=== PATIENT | female | born 1955 | race Caucasian/White ===

== ENCOUNTER → 2017-06-10 | Outpatient (CLI) | payer BC ==
--- NOTE | 2017-06-13 10:45 | Diagnostic Imaging Report ---
INDICATION: Screening mammogram. COMPARISON: 05/14/2016. TECHNIQUE: Digital screening mammography was obtained with CAD and 3-dimensional tomosynthesis. FINDINGS: The breast tissue is heterogeneously dense but stable. No masses or suspicious calcifications are seen. IMPRESSION: Stable screening mammogram. No malignancy. ACR BI-RADS Category 1: Negative. Result letter will be mailed to the patient. Note: At least 10% of breast cancer is not imaged by mammography. Dictated by: Dictated on workstation # [id number]
== END ==
LOC: RAD 13:33
PROVIDERS: ATTEND Obstetrics & Gynecology
DX: Z12.31 Encounter for screening mammogram for malignant neoplasm of breast (principal)
CPT/HCPCS: 77067

== ENCOUNTER → 2018-06-30 | Outpatient (CLI) | payer BC ==
--- NOTE | 2018-06-30 14:06 | Diagnostic Imaging Report ---
INDICATION: Routine screening. COMPARISON: Comparison is made with prior mammogram from 06/10/2017 and 05/14/2016. TECHNIQUE: 2D and 3D bilateral screening mammography was performed with computer-aided detection (CAD) system. FINDINGS: Both breasts remain heterogeneously dense, limiting the sensitivity of mammography. There are some microcalcifications noted in the left breast posterior depth just medial to the nipple line on the CC view. These are not well seen on the MLO view. Additional views are recommended of these calcifications. The right breast is stable. No mass is identified. The axillae are unremarkable. IMPRESSION: Left breast calcifications. Additional views are recommended. ACR BI-RADS Category 0: Incomplete. (Needs additional imaging evaluation). Result letter will be mailed to the patient. Note: At least 10% of breast cancer is not imaged by mammography. Dictated by: Dictated on workstation # [id number]
== END ==
LOC: RAD 08:25
PROVIDERS: ATTEND Obstetrics & Gynecology
DX: Z12.31 Encounter for screening mammogram for malignant neoplasm of breast (principal); R92.1 Mammographic calcification found on diagnostic imaging of breast
CPT/HCPCS: 77067

== ENCOUNTER → 2018-07-17 | Outpatient (CLI) | payer BC ==
--- NOTE | 2018-07-17 16:05 | Diagnostic Imaging Report ---
INDICATION: Followup screening mammogram for calcifications Comparison made to prior examination 06/10/17 and 06/30/2018. Spot compression views and true lateral view of the left breast were obtained. FINDINGS: Magnification compression view of the left breast demonstrates no suspicious mass or microcalcifications. There are a few faint punctate benign type calcifications. IMPRESSION: Category 2 benign ACR BI-RADS Category 2: Benign findings. Result letter will be mailed to the patient. Note: At least 10% of breast cancer is not imaged by mammography. Dictated by: Dictated on workstation # [id number]
== END ==
LOC: RAD 13:48
PROVIDERS: ATTEND Obstetrics & Gynecology
DX: R92.1 Mammographic calcification found on diagnostic imaging of breast (principal)

== ENCOUNTER → 2019-08-06 | Outpatient (CLI) | payer MEDICARE ==
--- NOTE | 2019-08-06 16:38 | Diagnostic Imaging Report ---
INDICATION: Routine screening. COMPARISON: 06/30/2018 and 06/10/2017. TECHNIQUE: 2D and 3D bilateral screening mammography was performed with CAD. FINDINGS: Both breasts remain heterogeneously dense, limiting the sensitivity of mammography. The parenchymal pattern is stable. No mass or malignant appearing microcalcifications are seen. The axillae are unremarkable. IMPRESSION: No mammographic features suspicious for malignancy are identified. ACR BI-RADS Category 1: Negative. Result letter will be mailed to the patient. Note: At least 10% of breast cancer is not imaged by mammography. Dictated by: Dictated on workstation # [id number]
== END ==
LOC: RAD 14:48
PROVIDERS: ATTEND Obstetrics & Gynecology
DX: Z12.31 Encounter for screening mammogram for malignant neoplasm of breast (principal)
CPT/HCPCS: 77067

== ENCOUNTER → 2019-08-07 | Outpatient (CLI) | payer MEDICARE ==
--- NOTE | 2019-08-07 11:35 | Diagnostic Imaging Report ---
INDICATION: Postmenopausal state, screening for osteoporosis. COMPARISON: March, FINDINGS: AP Spine L1-L4: [BMD (g/cm2): 1.131] [T-Score: -0.6] [Z-Score: 1.2] [BMD Previous: 1.179] [BMD % Change: -4.1] LT Hip Neck: [BMD (g/cm2): 0.738] [T-Score: -2.2] [Z-Score: -0.6] LT Hip Total: [BMD (g/cm2):0.835] [T-Score:-1.4] [Z-Score: 0.0] [BMD Previous: 0.887] [BMD % Change: -5.9] RT Hip Neck: [BMD (g/cm2):0.663] [T-Score:-2.7] [Z-Score:-1.1] RT Hip Total: [BMD (g/cm2):0.821] [T-score:-1.5] [Z-Score:-0.1] [BMD Previous:0.834] [BMD % Change:-1.6] *Indicates significant change from prior examination based on 95% confidence level. World Health Organization criteria for BMD interpretation classify patients as Normal (T-score at or above -1.0), Osteopenic (T-score between -1.0 and -2.5) or Osteoporotic (T-score at or below -2.5). LIMITATIONS AND MODIFICATION: None. FRACTURE RISK (FRAX SCORE): The ten year probability of (%): Major Osteoporotic Fracture: [14.3] Hip Fracture: [3.6] IMPRESSION: 1. Osteoporosis. 2. No significant change in bone mineral density since prior examination. 3. See below National Osteoporosis Foundation guidelines on when to potentially initiate pharmacologic therapy. Based on the National Osteoporosis Foundation Guidelines, pharmacologic treatment should be initiated in any of the following, unless clinical conditions suggest otherwise: * Any patient with prior fragility fracture of the hip or vertebrae. A spine fracture indicates 5X risk for subsequent spine fracture and 2X risk for subsequent hip fracture. * Osteoporosis (T-score <-2.5). * Postmenopausal women and men age 50 and older with low bone mass/osteopenia (T-score between -1.0 and -2.5) by DXA and 10-year major osteoporotic fracture greater than 20% or a 10-year probability of hip fracture greater than 3%. These fracture risks are supplied above in the FRAX score, if applicable. * Clinician judgement and/or patient preferences may indicate treatment for people with 10-year fracture probabilities above or below these levels. Dictated by: Dictated on workstation # [id number]
== END ==
LOC: RAD 10:53
PROVIDERS: ATTEND Internal Medicine
DX: Z13.820 Encounter for screening for osteoporosis (principal); M81.0 Age-related osteoporosis without current pathological fracture; M47.812 Spondylosis without myelopathy or radiculopathy, cervical region; Z78.0 Asymptomatic menopausal state
CPT/HCPCS: 77080

== ENCOUNTER → 2020-05-26 | Outpatient (CLI) | payer MEDICARE ==
--- NOTE | 2020-05-26 14:01 | Diagnostic Imaging Report ---
PROCEDURE: MRI left joint lower extremity without contrast. TECHNIQUE: Multiplanar, multisequence non contrast-enhanced MRI of the left lower extremity was accomplished. INDICATION: Knee pain and swelling. FINDINGS: The anterior cruciate and posterior cruciate ligaments are intact. Both the superficial and deep components of the medial collateral ligament are intact. Biceps, femoris, tibial collateral and iliotibial band are intact. There is oblique tear through the posterior horn of the medial meniscus. There is also some abnormal signal intensity seen anterior horn of the lateral meniscus. Moderate knee joint effusion. There appears to be several intra-articular loose bodies. There is some 3 compartment osteoarthritic change. There is some underlying marrow edema in the lateral femoral condyle. Quadriceps tendon and patellar tendons are intact. There are no other focal soft tissue abnormalities. IMPRESSION: 3 compartment osteoarthritic change with what appears be several intra-articular loose bodies as well as a moderate joint effusion. Some focal marrow edema in the lateral femoral condyle. Findings suspect for degenerative changes in the posterior horn of the medial meniscus and anterior horn lateral meniscus. No other internal derangement of the knee. Dictated by: Dictated on workstation # [id number]
== END ==
LOC: RAD 12:16
PROVIDERS: ATTEND Emergency Medicine
DX: M17.12 Unilateral primary osteoarthritis, left knee (principal)
CPT/HCPCS: 73721

== ENCOUNTER → 2020-08-19 | Outpatient (CLI) | payer MEDICARE ==
--- NOTE | 2020-08-19 11:35 | Diagnostic Imaging Report ---
INDICATION: Routine screening. COMPARISON: 08/06/2019 and 06/30/2018. TECHNIQUE: 2D and 3D bilateral screening mammography was performed with CAD. FINDINGS: Both breasts are heterogeneously dense, limiting the sensitivity of mammography. Benign calcifications in the right breast are again noted and appear stable. No mass or malignant appearing microcalcifications are seen. The axillae are unremarkable. IMPRESSION: No mammographic features suspicious for malignancy are identified. ACR BI-RADS Category 2: Benign findings. Result letter will be mailed to the patient. Note: At least 10% of breast cancer is not imaged by mammography. Dictated by: Dictated on workstation # [id number]
== END ==
LOC: RAD 09:30
PROVIDERS: ATTEND Obstetrics & Gynecology
DX: Z12.31 Encounter for screening mammogram for malignant neoplasm of breast (principal)
CPT/HCPCS: 77063; 77067

== ENCOUNTER 2020-11-24 12:28 | Outpatient (CLI) | payer MEDICARE ==
[~2020-11-24] VITALS: Ht 160 cm
[2020-11-24] MEDS ORDERED: ZOLEDRONATE (RECLAST) 5 MG/100 ML IV ONE (12:45)
[2020-11-24 13:20] VITALS: BP 134/77
== END 2020-11-24 13:20 | disposition home or self-care (01) ==
LOC: SDC 12:28
PROVIDERS: ATTEND Internal Medicine
DX: M81.0 Age-related osteoporosis without current pathological fracture (principal)
CPT/HCPCS: 96365

== ENCOUNTER → 2021-03-11 | Outpatient (CLI) | payer MEDICARE | LOC: CARD 08:30 | PROVIDERS: ATTEND Physician Assistant | DX: I11.9 Hypertensive heart disease without heart failure (principal) | CPT/HCPCS: 93306 ==

== ENCOUNTER → 2021-05-06 | Outpatient (CLI) | payer MEDICARE ==
[~2021-05-06] VITALS: Ht 160 cm; Wt 61.0 kg
[~2021-05-06] MED LIST: CATHETER FLUSH 10 ML SYR IV PRN
[2021-05-06 09:02] VITALS: BP 164/77
--- NOTE | 2021-05-06 13:02 | Cardiology Stress Test Report ---
Stress Test Report Date of Procedure/Referring: Date of Procedure: May 06, 2021 Nicole Lee Admitting Physician Wilder Costa DO Indications: CP Baseline Heart Rate: 68 Baseline Blood Pressure: Blood Pressure Systolic: 164 Blood Pressure Diastolic: 77 Vital Signs Date Time Temp Pulse Resp B/P (MAP) Pulse Ox O2 Delivery O2 Flow Rate FiO2 05/06/21 09:02 68 164/77 (106) Baseline Vital Signs Vital Signs Date Time Temp Pulse Resp B/P (MAP) Pulse Ox O2 Delivery O2 Flow Rate FiO2 05/06/21 09:02 68 164/77 (106) Baseline EKG: Baseline EKG: NSR Summary: After explaining the procedure and details to the patient, she signed the consent and was brought to the stress nuclear laboratory. Patient exercised on standard Selvin protocol, EKG, heart rate and blood pressure were monitored continuously, resting and stress doses of radio tracer were injected, imaging was acquired and reviewed in the short axis, horizontal long axis and vertical long axis views Patient was able to exercise for a total of 6 minutes on Selvin protocol, METs 7.3 Maximum heart rate 132 Maximum blood pressure 192/95 Stress EKG, Minimal nondiagnostic changes Recovery EKG, Return to baseline TID: 1.12 SSS: 1 SDS: 1 EF: 76 Conclusion: 1. Fair exercise tolerance for a total of 6 minutes on standard Selvin protocol, 7.3 METS achieving 86% of maximal expected heart rate 2. Hypertensive response to exercise with peak blood pressure 192/95 return to baseline during recovery 3. No significant ischemia or infarction on SPECT images 4. Normal left ventricular size, EF 76% Copy Copies To 1: WILDER COSTA BASHAR J MD May 06, 2021 13:01
== END ==
LOC: CARD 07:30
PROVIDERS: ATTEND Physician Assistant
DX: R07.9 Chest pain, unspecified (principal); I10 Essential (primary) hypertension
CPT/HCPCS: 78452; 93017; A9502

== ENCOUNTER → 2021-08-25 | Outpatient (CLI) | payer MEDICARE ==
--- NOTE | 2021-08-25 13:08 | Diagnostic Imaging Report ---
INDICATION: Routine screening. COMPARISON: 08/19/2020 and 08/06/2019. TECHNIQUE: 2D and 3D bilateral screening mammography was performed with CAD. FINDINGS: Both breasts are heterogeneously dense, limiting the sensitivity of mammography. Occasional benign calcifications are noted. No mass or malignant-appearing microcalcifications are seen. The axillae are unremarkable. IMPRESSION: No mammographic features suspicious for malignancy are identified. ACR BI-RADS Category 2: Benign findings. Result letter will be mailed to the patient. Note: At least 10% of breast cancer is not imaged by mammography. Dictated by: Dictated on workstation # [id number]
== END ==
LOC: RAD 08:00
PROVIDERS: ATTEND Internal Medicine
DX: Z12.31 Encounter for screening mammogram for malignant neoplasm of breast (principal)
CPT/HCPCS: 77063; 77067

== ENCOUNTER → 2022-01-12 | Outpatient (CLI) | payer MEDICARE ==
[~2022-01-12] MED LIST changes: -CATHETER FLUSH 10 ML SYR IV PRN; +ZOLEDRONATE (NON-FORMULARY) 100 ML IV ONE
[2022-01-12 12:45] VITALS: BP 147/80
== END ==
LOC: SDC 12:18
PROVIDERS: ATTEND Internal Medicine
DX: M81.0 Age-related osteoporosis without current pathological fracture (principal)
CPT/HCPCS: 96365

== ENCOUNTER → 2022-08-31 | Outpatient (CLI) | payer MEDICARE ==
--- NOTE | 2022-08-31 10:44 | Diagnostic Imaging Report ---
INDICATION: Postmenopausal state. COMPARISON: 08/07/2019 FINDINGS: AP Spine L1-L4: [BMD (g/cm2): 1.029] [T-Score: -1.4] [Z-Score: 0.4] [BMD Previous: 1.131] [BMD % Change: -9.0]* LT Hip Neck: [BMD (g/cm2): 0.757] [T-Score: -2.0] [Z-Score: -0.3] LT Hip Total: [BMD (g/cm2):0.840] [T-Score:-1.3] [Z-Score: 0.2] [BMD Previous: 0.835] [BMD % Change: 0.6] RT Hip Neck: [BMD (g/cm2):0.700] [T-Score:-2.4] [Z-Score:-0.7] RT Hip Total: [BMD (g/cm2):0.879] [T-score:-1.0] [Z-Score:0.5] [BMD Previous:0.821] [BMD % Change:7.1]* *Indicates significant change from prior examination based on 95% confidence level. World Health Organization criteria for BMD interpretation classify patients as Normal (T-score at or above -1.0), Osteopenic (T-score between -1.0 and -2.5) or Osteoporotic (T-score at or below -2.5). LIMITATIONS AND MODIFICATION: None. FRACTURE RISK (FRAX SCORE): FRAX score is not calculated as the patient has been treated for osseous demineralization. IMPRESSION: 1. Osteopenia (Low bone mass). 2. Bone mineral density within the lumbar spine has significantly decreased since the prior examination. Bone mineral density within the right hip has significantly increased since the prior examination. 3. See below National Osteoporosis Foundation guidelines on when to potentially initiate pharmacologic therapy. Based on the National Osteoporosis Foundation Guidelines, pharmacologic treatment should be initiated in any of the following, unless clinical conditions suggest otherwise: * Any patient with prior fragility fracture of the hip or vertebrae. A spine fracture indicates 5X risk for subsequent spine fracture and 2X risk for subsequent hip fracture. * Osteoporosis (T-score <-2.5). * Postmenopausal women and men age 50 and older with low bone mass/osteopenia (T-score between -1.0 and -2.5) by DXA and 10-year major osteoporotic fracture greater than 20% or a 10-year probability of hip fracture greater than 3%. These fracture risks are supplied above in the FRAX score, if applicable. * Clinician judgement and/or patient preferences may indicate treatment for people with 10-year fracture probabilities above or below these levels. Dictated by: Dictated on workstation # [id number]
--- NOTE | 2022-08-31 20:51 | Diagnostic Imaging Report ---
3-D bilateral screening mammogram. The current study was also evaluated with a Computed Aided Detection (CAD) system. COMPARISON: 08/25/2021, 08/19/2020 and 08/06/2019. There are no current complaints. The fibroglandular tissue in both breasts is heterogeneously dense. This does limit the sensitivity of this exam. When compared to the previous study there does not appear to have been any significant change. There is no primary or secondary sign of malignancy noted. IMPRESSION: There is no evidence for malignancy. ACR BI-RADS Category 1: Negative. Result letter will be mailed to the patient. Note: At least 10% of breast cancer is not imaged by mammography. Dictated by: Dictated on workstation # [id number]
== END ==
LOC: RAD 09:15
PROVIDERS: ATTEND Internal Medicine
DX: Z12.31 Encounter for screening mammogram for malignant neoplasm of breast (principal); M85.80 Other specified disorders of bone density and structure, unspecified site; Z78.0 Asymptomatic menopausal state
CPT/HCPCS: 77063; 77067; 77080

== ENCOUNTER 2023-02-09 12:59 | Outpatient (CLI) | payer MEDICARE ==
[~2023-02-09] VITALS: Ht 160 cm; Wt 59.0 kg
[2023-02-09 13:05] VITALS: BP 126/68
[2023-02-09] MEDS ORDERED: ZOLEDRONATE (NON-FORMULARY) 100 ML IV ONE (13:30)
== END 2023-02-09 14:40 | disposition home or self-care (01) ==
LOC: SDC 12:59
PROVIDERS: ATTEND Internal Medicine
DX: M81.0 Age-related osteoporosis without current pathological fracture (principal)
CPT/HCPCS: 96365

== ENCOUNTER → 2023-07-01 | Outpatient (CLI) | payer MEDICARE | LOC: CARD 08:26 | PROVIDERS: ATTEND Internal Medicine Cardiovascular Disease | DX: I10 Essential (primary) hypertension (principal) | CPT/HCPCS: 93306 ==

== ENCOUNTER → 2023-09-02 | Outpatient (CLI) | payer MEDICARE ==
--- NOTE | 2023-09-04 18:10 | Diagnostic Imaging Report ---
INDICATION: Screening. EXAMINATION: 3D bilateral screening mammogram with CAD. The current study was also evaluated with a Computer Aided Detection (CAD) system. COMPARISON: This study was compared to the prior exams of 08/31/2022, 08/25/2021 and 08/19/2020. FINDINGS: The breasts are heterogenously dense, which may obscure small masses. When compared to the previous study, there does not appear to have been any significant change. There is no primary or secondary sign of malignancy noted. IMPRESSION: There is no evidence for malignancy. ACR BI-RADS Category 1: Negative. Result letter will be mailed to the patient. Note: At least 10% of breast cancer is not imaged by mammography. Dictated by: Dictated on workstation # [id number]
== END ==
LOC: RAD 08:22
PROVIDERS: ATTEND Nurse Practitioner Family
DX: Z12.31 Encounter for screening mammogram for malignant neoplasm of breast (principal)
CPT/HCPCS: 77063; 77067